=== PATIENT | male | born 1985 | race Caucasian/White ===

== ENCOUNTER 2023-05-11 16:33 | Emergency (ER) | payer OTHER, SELFPAY ==
[2023-05-11 17:00] VITALS: BP 138/82; PULSE 87; RESP 18; TEMP 37.2; O2SAT 99
--- NOTE | 2023-05-11 17:12 | ED.URI ---
HPI - URI/Sore Throat General Chief Complaint: Upper Respiratory Infection Stated Complaint: right ear issue,jaw pain right side,dizziness Time Seen by Provider: 05/11/23 17:12 Source: patient Mode of arrival: ambulatory Limitations: no limitations History of Present Illness HPI Narrative: 38-year-old male presents with complaint of sinus pressure, nasal drainage, bilateral ear pressure for approximately 2 weeks. Was seen at an urgent care out of town and given Z-Geronimo. No change to sinus symptoms after antibiotic. Not taking any [id number] antihistamines to treat congestion. for the last 1-2 days has had dizziness. Afebrile. All systems reviewed and negative except as noted above. Related Data Home Medications Medication Instructions Recorded Confirmed Pristiq 05/11/23 Trintellix 05/11/23 bupropion HCl 100 mg tablet 100 mg PO DAILY 05/11/23 05/11/23 desvenlafaxine succinate 100 mg 100 mg PO DAILY 05/11/23 05/11/23 tablet,extended release 24 hr trazodone 100 mg tablet 100 mg PO DAILY 05/11/23 05/11/23 Allergies Allergy/AdvReac Type Severity Reaction Status Date / Time No Known Allergies Allergy Verified 05/11/23 16:55 Review of Systems Review of Systems: CONSTITUTIONAL: Denies fever, chills, or sweats. EYES: Denies visual changes, redness, or discharge. ENT: Reports rhinorrhea, congestion, bilateral ear pressure. Denies sore throat CARDIOVASCULAR: Denies chest pain, palpitations, or edema. RESPIRATORY: Denies cough or dyspnea. GASTROINTESTINAL: Denies abdominal pain, nausea, vomiting, or diarrhea. GENITOURINARY: Denies dysuria or hematuria. SKIN: Denies rash or itching. MUSCULOSKELETAL: Denies back pain, joint pain, or myalgia. NEUROLOGIC: reports headache, dizziness. Denies numbness, or weakness. PSYCHIATRIC: Denies anxiety or depression. All other systems reviewed are negative, except as documented in HPI. PMFSH Comments At time of signature, agree with nursing past medical, surgical, social and family history. There is no relevant family history pertinent to the presenting complaint. Exam Narrative: GENERAL: This is a well-nourished, well-developed patient, in no apparent distress. HEAD: normocephalic, atraumatic. EYES: PERRL. Sclera clear/white. Vision is grossly intact. EARS: External ears normal, auditory canals clear and without drainage, a fluid bilateral TMs normal without perforation, dull light reflex. Hearing grossly intact. NOSE: External nose normal with Purulent nasal drainage, erythema to bilateral nares. bilateral maxillary sinus tenderness on palpation. THROAT: Mucous membranes moist, Postnasal drainage NECK: Neck supple, non-tender without lymphadenopathy, masses or thyromegaly. CARDIOVASCULAR: Regular rate and rhythm without murmurs, gallops, or rubs. RESPIRATORY: Clear to auscultation. Breath sounds equal bilaterally. No wheezes, rales, or rhonchi. SKIN: warm, Dry, intact with no suspicious lesions or rash, good texture and turgor. NEURO: awake, alert, and oriented to person, place and time. There were no obvious focal neurologic abnormalities. EXTREMITIES: No joint tenderness, effusion, or edema noted. Course Course Level of Care: Express Care Visit Vital Signs Vital signs: Vital Signs Temperature 37.2 C 05/11/23 17:00 Pulse Rate 87 05/11/23 17:00 Respiratory Rate 18 05/11/23 17:00 Blood Pressure 138/82 05/11/23 17:00 Pulse Oximetry 99 05/11/23 17:00 Temperature 37.2 C 05/11/23 17:00 Pulse Rate 87 05/11/23 17:00 Respiratory Rate 18 05/11/23 17:00 Blood Pressure 138/82 05/11/23 17:00 Pulse Oximetry 99 05/11/23 17:00 Reviewed MDM - URI/Sore Throat MDM Narrative Medical decision making narrative: will treat for bacterial sinusitis due to duration of symptoms and exam findings. Augmentin is a better antibiotic to treat bacterial sinusitis. Explain this to patient. Also give steroids, meclizin
== END 2023-05-11 17:33 | disposition home or self-care (01) ==
PROVIDERS: Emergency Provider Nurse Practitioner Family; PCP Nurse Practitioner Family
DX: J01.90 Acute sinusitis, unspecified (principal); B96.89 Other specified bacterial agents as the cause of diseases classified elsewhere; Z79.899 Other long term (current) drug therapy
CPT/HCPCS: 99203; G0463